=== PATIENT | female | born 1980 | race Caucasian/White ===

== ENCOUNTER 2019-03-03 13:46 | Inpatient (IN) | payer BC ==
[~2019-03-03] VITALS: Ht 172.7 cm; Wt 264.8 kg
[2019-03-03] MEDS ORDERED: ROBAXIN 50500 MG/TAB PO (14:50)
[2019-03-03] MEDS ORDERED: ATIVAN 0.50.5 MG/TAB PO (14:51)
[2019-03-03] MEDS ORDERED: OXY IR5 MG PO (14:53)
[2019-03-03] MEDS ORDERED: CELEBREX 200MG200 MG PO (14:54)
[2019-03-03] MEDS ORDERED: ACTOS30 MG PO (15:00)
[2019-03-03] MEDS ORDERED: BENICAR40 MG PO (15:00)
[2019-03-03] MEDS ORDERED: LYRICA 100MG C100 M1 PO (15:01)
[2019-03-03] MEDS ORDERED: TIROSINT25 MC1 PO (15:02)
[2019-03-03] MEDS ORDERED: AMARYL 2MG T2 MG/TAB PO (15:03)
[2019-03-03] MEDS ORDERED: PRILOSEC 20MG20 MG PO (15:04)
[2019-03-03] MEDS ORDERED: CYMBALTA 60MG60 MG PO (15:04)
[2019-03-03] MEDS ORDERED: AMBIEN 10MG10 MG PO (15:05)
[2019-03-03] MEDS ORDERED: ZOCOR 40MG40 MG PO (15:06)
[2019-03-03] MEDS ORDERED: PROZAC 20MG20 MG PO (15:06)
[2019-03-03] MEDS ORDERED: CLARITIN 1010 MG/TAB PO (15:07)
[2019-03-03] MEDS ORDERED: SYNTHROID0.2 MG/TAB PO (15:08)
[2019-03-03] MEDS ORDERED: VICTOZA6 MG/ML SQ (15:09)
[2019-03-03] MEDS ORDERED: TRESIBA FL200 UNIT/1 SQ (15:10)
[2019-03-03 15:13] LABS: BASO # 0.1 (0.0-0.2); BASO % 0.6 % (0.0-2.0); EOS # 0.2 (0.0-0.7); EOS % 1.8 % (0-4.0); GRAN # 6.1 (1.4-6.5); GRAN % 62.7 % (42.2-75.2); HEMOGLOBIN 10.8 g/dl (12.5-16.0); LYMPH # 2.8 (1.2-3.4); LYMPH % 28.7 % (20.0-51.0); MEAN CELL VOLUME 94 fl (80.0-100.0); MEAN CORPUSCULAR HEMOGLOBIN 29 pg (27.0-31.0); MEAN CORPUSCULAR HGB CONC 31 g/dl (33.0-37.0); MONO # 0.6 (0.1-0.6); MONO % 5.9 % (1.7-9.3); PLATELET COUNT 325 K/mm3 (130-400); RED BLOOD COUNT 3.73 M/mm3 (4.10-5.30)
[2019-03-03 15:16] LABS: HEMATOCRIT 35.1 % (37.0-47.0)
[2019-03-03 15:20] LABS: ALBUMIN 3.8 gm/dL (3.5-5.0); BILIRUBIN,TOTAL 0.4 mg/dL (0.0-1.0); CALCIUM 9.4 mg/dL (8.4-10.2); CREATININE, serum 0.73 (0.52-1.25); POTASSIUM 4.2 mmol/L (3.4-5.0)
--- NOTE | 2019-03-03 16:19 | NUR ---
garbage worker received a call from patient and spoke to her on 03/01/19 about her injury and inability to move, since [facility]. Worker collaborated with Cathy at Dr Flores's office to have patient transferred to this emergency room as patient adamently refuses to transfer to the [facility] emergency room. Patient received a leg injury while visiting at her mother's home and due to her weight, hasn't been able to stand up or move since then. Patient's family moved a mattress under patient, for her comfort. Patient verbalizes that it is very difficult for her to be in the hospital. Worker offered emotional support. Patient will be admitted to the medical unit. Patient lives with spouse, who works at [employer] and is an IT worker. Patient states she is very close to her mother, sister, nieces and nephew that also reside in [place]. Physical and occupational therapies will be ordered and will assist with recommendations for disposition. Case management will continue to follow and assist with securing a safe discharge plan. Patient has a walker and a wheelchair at home. Patient's primary care physician is Dr Flores.
[2019-03-03] MEDS ORDERED: PERCOCET 325 MG1 TA2 PO (17:28)
[2019-03-03] MEDS ORDERED: CRANBERRY500 M3 PO (17:30)
[2019-03-03] MEDS ORDERED: ASPIRIN 81M81 MG/TA2 PO ×2 (17:31)
[2019-03-03] MEDS ORDERED: STOOL SOFTENER100 M2 PO (17:33)
[2019-03-03] MEDS ORDERED: NATURAL IRON65 MG PO (17:34)
[2019-03-03] MEDS ORDERED: MIDOL COMPLETE1 EACH PO (17:36)
[2019-03-03] MEDS ORDERED: VITAMIN C500 MG PO (17:37)
[2019-03-03 17:38] VITALS: BP 148/81; PULSE 95; TEMP 98.4
[2019-03-03] MEDS ORDERED: DIFLUCAN50 MG (19:10)
[2019-03-03] MEDS ORDERED: LASIX 20MG TABL20 MG (19:10)
--- NOTE | 2019-03-03 19:30 | NUR ---
Pt arrived to room 359 at this time. Pt is A/O x3. Very friendly and talkative. She currently reports pain to R shoulder, and reports some pressure to sternum area since PICC placement. Denies N/V. Pt reporting the need to urinate, patient requesting to urinate on towel and be cleaned up. Assisted with this, foul smelling urine. Pt has a PICC line to RUE. at bedside, POC discussed with patient who verbalizes understanding.
[2019-03-03 20:15] VITALS: BP 124/64; PULSE 93; TEMP 97.9
[2019-03-04] MEDS ORDERED: MUCINEX 60600 MG/TA1 PO (00:29)
[2019-03-04] MEDS ORDERED: BENADRYL25 M2 PO ×2 (00:31→00:58)
[2019-03-04] MEDS ORDERED: SENNA-S 50 MG-81 TAB PO (00:34)
[2019-03-04] MEDS ORDERED: VITAMIN B11000 MCG/M IM (00:36)
[2019-03-04] MEDS ORDERED: CALCIUM/MAGNESI1 T13 PO (00:43)
[2019-03-04] MEDS ORDERED: AZO YEAST PO (00:47)
[2019-03-04] MEDS ORDERED: Pamprin PO (00:50)
[2019-03-04] MEDS ORDERED: [UNRECOGNIZED DRUG - OTHER] PO (00:53)
[2019-03-04] MEDS ORDERED: DAY TIME 325 MG1 SGL PO (00:59)
[2019-03-04] MEDS ORDERED: [UNRECOGNIZED DRUG - CODE] PO (01:00)
[2019-03-04] MEDS ORDERED: IMODIUM 2MG CAPS2 MG PO (01:00)
--- NOTE | 2019-03-04 01:00 | NUR ---
THIS NURSE TOOK OVER PT CARES AT THIS TIME.
[2019-03-04] MEDS ORDERED: ZANTAC 150MG T150 MG PO (01:02)
[2019-03-04] MEDS ORDERED: TYLENOL 8 HR PO (01:03)
[2019-03-04] MEDS ORDERED: GAS AID MAXIMU125 MG PO (01:04)
[2019-03-04] MEDS ORDERED: ZOFRAN 4MG T4 MG/TAB PO (01:05)
[2019-03-04] MEDS ORDERED: EXCEDRIN1 TAB PO (01:05)
[2019-03-04] MEDS ORDERED: ALEVE 220MG220 MG PO (01:06)
[2019-03-04] MEDS ORDERED: PEPTO BISM262 MG/15 PO (01:07)
--- NOTE | 2019-03-04 01:32 | NUR ---
Completed assessment; PT tolerated call cares and communications; PT A&Ox4, BS active x4, HRRR, PERRLA, spouse in room; PT educated the home medication will need to go home; Ortho communication post consult stated will follow outpt with no more inpt orders; No further assessed or communicated concerns at time of exit; PT able to return to comfortable position in bed with personal items and call light within reach; Will continue to monitor. CDA
[2019-03-04 01:48] VITALS: BP 130/52; PULSE 101; TEMP 98.2
--- NOTE | 2019-03-04 01:50 | NUR ---
PT HAS C/O PAIN TO FOOT AND NEEDING PRN TYLENOL, ADMINISTERED. PT VOICED NO OTHER ISSUES OR NEEDS AT THIS TIME.
--- NOTE | 2019-03-04 04:00 | NUR ---
THIS NURSE ADMINISTERED 0300 MEDS. PT TOOK WITHOUT ISSUE. PT STATED SHE IS SLEEPING WELL DUE TO TAKING HER AMBIAN EARLIER. NO OTHER ISSUES OR CONSERNS VOICED. PT PLEASANT AND COOPERATIVE WITH CARES.
[2019-03-04 04:24] VITALS: BP 134/46; PULSE 102; TEMP 98.4
--- NOTE | 2019-03-04 07:15 | NUR ---
Report received from ZARA Wu. PT in bed resting on side in beriatric bed, denies needs, will continue to monitor.
[2019-03-04 08:28] VITALS: BP 145/58; PULSE 89; TEMP 97.2
--- NOTE | 2019-03-04 10:36 | NUR ---
Pt resting in bed after getting bed bath from student nurse. PICC to WILBERT. RLE dressed with DEJON, cannot feel pulses d/t dressing but CMS intact pt able to move toes but has diminished sensation to toes chronically. Pt denies pain. Waiting for family to come with breakfast. Assessment charted. Will continue to monitor.
--- NOTE | 2019-03-04 11:15 | NUR ---
Initial visit; Patient thanked Director Of Field Coordination for stopping and offering her God's blessings.
[2019-03-04 12:00] VITALS: BP 152/75; PULSE 96; TEMP 97.5
--- NOTE | 2019-03-04 13:11 | NUR ---
SW met with the patient during clinical rounds. The hospitist's discussed her and physical therapies recommendation of post-acute rehab. The patient reports that she would be agreeable to rehab. JONNA then followed up with the patient to discuss discharge plan. The patient lives in [place] with her , Tr. She states that her sister and mother both live within a mile of her. She reports needing assistance with ADLs and has a cane, walker, and wheelchair. She states her is able to help and assist her when he is home from work. She states that her family is also supportive, but that she does not like to ask them for help, because they have their own responsibilities. The patient's PCP is Dr. Rainer Flores and she receives her medications from the [facility] in [facility]. She also uses [facility]. She reports no difficulties obtaining her meds. The patient does not have advanced directives, but she was interested in obtaining a form for DPOA-HC. JONNA provided. JONNA then discussed post-acute rehab options and presented and explained the patient choice form. The patient states that she is open to all options. JONNA contacted and faxed [facility] to [facility], [facility], [facility], and [facility]. Patient choice form signed by the patient and she was provided a copy. An IPR consult was also ordered. Dalia, IPR Director, reports that she would like to accept the patient; but that their is not a bed available at this time. SW to continue to follow.
--- NOTE | 2019-03-04 13:31 | NUR ---
Primary nurse was assisted with [id number] patient care by [employer] student Laila Izaguirre and [employer] instructor Denisa Ortiz RN-BC.
--- NOTE | 2019-03-04 14:51 | NUR ---
Shannan, at [facility], reports that they have declined the patient. Rosas, at [facility], reports that they have declined the patient. Kristina, at [facility], reports that the patient has no snf benefits and that the patient would then have to private pay. JONNA contacted Maryam at [facility] to find out if they can accept. Maryam reports that she needs her hot strip mill supervisor to still review the referral. JONNA to continue to follow.
--- NOTE | 2019-03-04 15:12 | NUR ---
Maryam, at [facility], reports that they are unable to accept the patient; due to her not having much medical management.
--- NOTE | 2019-03-04 15:43 | NUR ---
Report given to ZARA Boswell who will resume care. Angelo aware of no psych coverage until 03/14
--- NOTE | 2019-03-04 16:02 | NUR ---
JONNA contacted and faxed a referral to Bailey at [facility]. Bailey reports that their clinical coordinator will not be back into the office until Thursday to review the referral. JONNA also contacted and faxed a referral to Kristina at [facility] in [place]. JONNA to update the patient and continue to follow.
[2019-03-04 16:14] VITALS: BP 135/72; PULSE 96; TEMP 98.4
--- NOTE | 2019-03-04 16:17 | NUR ---
JONNA updated the patient and she reports she is open to broadening where to send the referrals. She states she is open to [place], [place], and even [place]. JONNA will need to send those referrals and continue to follow.
--- NOTE | 2019-03-04 17:44 | NUR ---
Patient resting in bed. at the bedside. Patient A&O, VS stable. IV CDI. Patient complaints of loose stools, requested medication for diarrhea. Nurse will notify slip cover estimator nurse. Right foot elvated on pillow, patient complaints of pain, did not request pain medication. No further needs expressed from patient. Call light within reach
[2019-03-04 20:30] VITALS: BP 157/68; PULSE 95; TEMP 98.1
--- NOTE | 2019-03-04 20:30 | NUR ---
Initial shift assessment done- states having pain to right foot/back 05/18--scheduled for a percocet at this time, assisted pt with female urinal--voided 400cc dark cassandra urine, Has PICC to WILBERT-- no other requests at this time
[2019-03-05 01:30] VITALS: BP 126/54; PULSE 100; TEMP 98.3
[2019-03-05 04:57] VITALS: BP 120/61; PULSE 95
--- NOTE | 2019-03-05 05:24 | NUR ---
Quiet night- slept fairly well for 4-5 hours, pleasant, VSS
[2019-03-05 07:11] LABS: BASO # 0.1 (0.0-0.2); BASO % 0.9 % (0.0-2.0); EOS # 0.2 (0.0-0.7); EOS % 3.2 % (0-4.0); GRAN # 2.9 (1.4-6.5); GRAN % 40.8 % (42.2-75.2); HEMOGLOBIN 10.2 g/dl (12.5-16.0); LYMPH # 3.2 (1.2-3.4); LYMPH % 46.3 % (20.0-51.0); MEAN CELL VOLUME 94 fl (80.0-100.0); MEAN CORPUSCULAR HEMOGLOBIN 29 pg (27.0-31.0); MEAN CORPUSCULAR HGB CONC 31 g/dl (33.0-37.0); MEAN PLATELET VOLUME 10.5 fl (7.4-10.4); MONO # 0.6 (0.1-0.6); MONO % 8.7 % (1.7-9.3); PLATELET COUNT 296 K/mm3 (130-400); RED BLOOD COUNT 3.51 M/mm3 (4.10-5.30); REDCELL DISTRIBUTION WIDTH-CV 13.2 % (11.5-14.5)
[2019-03-05 07:13] LABS: HEMATOCRIT 33.1 % (37.0-47.0)
[2019-03-05 07:23] VITALS: BP 151/75; PULSE 77; TEMP 97.8
[2019-03-05 07:27] LABS: CALCIUM 9.2 mg/dL (8.4-10.2); CREATININE, serum 0.72 (0.52-1.25)
--- NOTE | 2019-03-05 09:30 | NUR ---
Patient assessment complete. Patient laying in bed upon entry. Lung sounds clear throughout, heart sounds normal. Bowel sounds present X4. No edema noted. Radial pulses strong bilaterally. Right leg in cast, patient able to wiggle toes. Patient denies pain other than right leg from working with therapy. Denies pain medication. Patient denies SOB, palpitations, dizziness, n/v. Denies chest pain. Denies other needs at this time. PICC in [facility] is CDI, no inflammation or phlebitis. Blood return and flushing from both ports. Call light within reach.
[2019-03-05 11:24] VITALS: BP 158/64; PULSE 84; TEMP 98.2
[2019-03-05 15:20] VITALS: BP 132/66; PULSE 84; TEMP 98.4
--- NOTE | 2019-03-05 18:43 | NUR ---
patient has had uneventful day. Worked with therapy earlier, did not get out of bed. Patient has shifted and turned self in bed. Very pleasant and helpful in cares. States some pain in right leg after therapy earlier but not much. Denies other needs at this time.
--- NOTE | 2019-03-05 19:20 | NUR ---
Shift assessment complete. Pt resting in bed, awake, a&o, cooperative c cares. Pt reports continued pain to R foot/leg, will continue c pain meds as scheduled. Pt denies further c/o. RLE dressing/splint per ortho, s complication. PICC to R upper arm, patent c good blood return. Pt denies further needs. Call light in reach, will monitor.
[2019-03-05 20:08] VITALS: BP 144/62; PULSE 91; TEMP 98
[2019-03-06 00:43] VITALS: BP 149/58; PULSE 101; TEMP 98.6
[2019-03-06 04:06] VITALS: BP 104/50; PULSE 94; TEMP 98.2
--- NOTE | 2019-03-06 06:04 | NUR ---
Pt resting in bed, condition unchanged. Pt has rested well this shift c very few needs. Pain well controlled c scheduled pain medication, no need for addt'l int. Pt denies needs at this time. Call light in reach.
[2019-03-06 08:56] VITALS: BP 150/75; PULSE 89; TEMP 98.5
--- NOTE | 2019-03-06 09:30 | NUR ---
Patient laying in bed. Shift assessment complete. Patient ordered breakfast. Heart sounds normal, lung sounds clear, bowel sounds present. Assisted in using female urinal. Cleaned up and changed gown. Patient can wiggle toes in right cast. Radial pulses strong bilaterally. Patient states her pain is a 6/10. Her ankle is bothering her after yesterday. No other needs at this time. Call light within reach.
[2019-03-06 11:09] VITALS: BP 150/73; PULSE 95; TEMP 98.2
--- NOTE | 2019-03-06 12:28 | NUR ---
BLOOD SUGAR CHECKED AFTER PATIENT JUST FININSHED LUNCH, WILL RECHECK. DID NOT GIVE SLIDING SCALE DUE AT NOON.
[2019-03-06 16:00] VITALS: BP 155/78; PULSE 87; TEMP 97.8
--- NOTE | 2019-03-06 17:31 | NUR ---
PATIENT LAYING IN BED WITH MOM AT BEDSIDE. UNEVENTFUL DAY. WORKED WITH PHYSICAL THERAPY A LITTLE TODAY. PATIENT IS VERY COMPLIANT WITH CARES AND HELPFUL. PATIENT HASN'T HAD MANY COMPLAINTS OR NEEDS THROUGHOUT THE DAY.
[2019-03-06 19:02] VITALS: BP 145/70; PULSE 92; TEMP 98.8
--- NOTE | 2019-03-06 19:09 | NUR ---
Report given to ZARA Girard. Patient has been pleasant and cooperative with cares. No other needs at this time.
--- NOTE | 2019-03-06 19:42 | NUR ---
Shift assessment complete. Pt resting in bed, awake, a&o, cooperative c cares. Pt reports continued chronic pain to RLE, will continue scheduled pain regimine. PICC noted to R upper arm, patent c good blood return. Pt denies further needs. Call light in reach, will monitor.
[2019-03-07 01:14] VITALS: BP 131/65; PULSE 102; TEMP 98.5
[2019-03-07 04:31] VITALS: BP 127/64; PULSE 95; TEMP 98.3
[2019-03-07 07:29] VITALS: BP 132/69; PULSE 85; TEMP 97.5
--- NOTE | 2019-03-07 09:00 | NUR ---
PATIENT LAYING IN BED UPON ENTRY. OT GETTING READY TO WORK WITH HER. PATIENT STATES SHE SLEPT WELL. REQUESTING ATIVAN BEFORE DOCTOR VISITS WITH HER. ASSESSMENT COMPLETE. LUNG SOUNDS CLEAR UPPER LOBES, BASES DIMINISHED. BOWEL SOUNDS PRESENT X4. HEART SOUNDS RRR. PER PATIENT "I HAVEN'T ORDERED BREAKFAST, I'M ANXIOUS ABOUT TODAY. HOPEFULLY THE ATIVAN WILL KICK IN BEFORE THEY COME TO SEE ME. MY STOMACH IS A LITTLE UNEASY". DENIES DIZZINESS, CHEST PAIN, PALPITATIONS OR SOB. PER PATIENT, "ANKLE DOESN'T FEEL TOO BAD. MY LOW BACK HURTS A LITTLE". AWAITING IPR SCREEN AND POSSIBLY GO TO IPR TODAY. ASSISSTED WITH FEMALE URINAL, COMPLETE BED CHANGE. DENIES OTHER NEEDS AT THIS TIME. CALL LIGHT WITHIN REACH.
[2019-03-07 10:55] VITALS: BP 151/79; PULSE 96; TEMP 98
--- NOTE | 2019-03-07 13:46 | NUR ---
Per vega amor... patient had solid bowel movement that was dark and sticky. patient has stated "my anxiety has messed with my stomach this morning". Patient is anxious about POC today and whether she will be moved to [facility]. Otherwise, patient is pleasant and not complaining of pain in regards to ankle and foot. No other needs at this time.
--- NOTE | 2019-03-07 15:23 | NUR ---
SW contacted [facility] and they report they do not have a bed available until potentially tomorrow. The director at [facility] suggested SW contact one of their sister hospitals like [facility]. SW student contacted [facility]. They report they have beds available but wouldn't be able to accept until tomorrow, 03/08. SW student faxed a referral to [facility] and will continue to follow.
[2019-03-07 15:39] VITALS: BP 129/61; PULSE 93; TEMP 98.3
--- NOTE | 2019-03-07 16:38 | NUR ---
Patient laying in bed, at bedside. Patient prescribed aristocort cream, left arm, under bicep is reddened, rash like area. Applied layer of cream. Per patient, she "has areas pop up occasionally". Denies other needs at this time. Possible IPR placement tomorrow. Call light within reach.
--- NOTE | 2019-03-07 16:48 | NUR ---
SW student contacted and faxed a referral to [facility] in [place]. SW awaiting their screening.
--- NOTE | 2019-03-07 19:00 | NUR ---
REPORT GIVEN TO ZARA QUINONES.
[2019-03-07 21:12] VITALS: BP 139/66; PULSE 92; TEMP 97.5
[2019-03-08 00:49] VITALS: BP 122/56; PULSE 97; TEMP 98.4
[2019-03-08 04:50] VITALS: BP 149/64; PULSE 88; TEMP 97.5
--- NOTE | 2019-03-08 05:37 | NUR ---
PT HAD UNEVENTFUL NOC. RECIEVED MEDS ORDERED. NO ISSUES OR CONSERNS VOICED THIS SHIFT. PLEASANT AND COOPERATIVE WITH CARES.
[2019-03-08 08:28] VITALS: BP 113/59; PULSE 86; TEMP 97.7
--- NOTE | 2019-03-08 09:16 | NUR ---
[facility] reports that they are unable to accept the patient.
--- NOTE | 2019-03-08 09:50 | NUR ---
PICC intact right upper arm. The edges of the dressing are rolling up. With sterile technique right upper arm PICC dressing change done with insertion site cleansed with ChloraPrep 1, chlorhexidine impregnated disc applied, skin prep, StatLock, and Tegaderm applied. Extra Tegaderm applied on top the catheter. Her symptoms of IV complications noted. No concerns voiced.
--- NOTE | 2019-03-08 10:44 | NUR ---
Pt lying in bed. Denies any pain. C/O right arm pain throught the night but had resolved. Denies any shortness of breath. Breathing even and unlabored. Completed morning assessent. Pt eager to get rehab place set. Left ankle wrapped, dressing clean dry and intact. Will continue to monitor. Call light in reach.
[2019-03-08 11:36] VITALS: BP 135/58; PULSE 85; TEMP 98.4
--- NOTE | 2019-03-08 13:23 | NUR ---
IPR Director, Dalia, reports that they have a bed available. Dalia got approval from the patient's insurance and she is able to accept the patient.
[2019-03-08] MEDS ORDERED: TRIAMCINOLONE A15 GM TP (13:53)
--- NOTE | 2019-03-08 13:58 | NUR ---
The patient is to discharge today, 03/08, to [facility]. No additional needs at this time.
--- NOTE | 2019-03-08 14:31 | NUR ---
Gave report to IPR. Pt is ready to go, all belongings gathered.
[2019-03-08 14:34] VITALS: BP 135/58; PULSE 85; TEMP 98.4
[2019-03-08] MEDS ORDERED: LOVENOX 6060 MG/0.6 SQ (17:22)
== END 2019-03-08 14:37 | DRG 563 ==
LOC: COL.ER 13:46 → MEDICAL 15:41
PROVIDERS: Emergency Medicine; Physician Assistant
PROC: 02HV33Z Insertion of Infusion Device into Superior Vena Cava, Percutaneous Approach (ICD-10-PCS; principal; 2019-03-03)
DX: S92.001A Unspecified fracture of right calcaneus, initial encounter for closed fracture (principal); Z68.45 Body mass index [BMI] 70 or greater, adult; W18.30XA Fall on same level, unspecified, initial encounter; E66.01 Morbid (severe) obesity due to excess calories; I10 Essential (primary) hypertension; E11.40 Type 2 diabetes mellitus with diabetic neuropathy, unspecified; E78.5 Hyperlipidemia, unspecified; J45.909 Unspecified asthma, uncomplicated; E88.81 Metabolic syndrome and other insulin resistance; K21.9 Gastro-esophageal reflux disease without esophagitis; Z87.891 Personal history of nicotine dependence; E03.9 Hypothyroidism, unspecified; F41.8 Other specified anxiety disorders; D50.9 Iron deficiency anemia, unspecified; G72.9 Myopathy, unspecified; M54.5 Low back pain; G89.29 Other chronic pain; L30.9 Dermatitis, unspecified; R21 Rash and other nonspecific skin eruption
CPT/HCPCS: 99223-AI; 99231-AI; 99232-AI; 99238; 99239; C1751; J1650; J1815; Q4045

== ENCOUNTER 2019-03-08 13:19 | Inpatient (IN) | payer BC, OTHER ==
[~2019-03-08] VITALS: Ht 172.7 cm; Wt 207.7 kg
[~2019-03-08 13:19] MED LIST: ACTOS30 MG PO; ALEVE 220MG220 MG PO; AMARYL 2MG T2 MG/TAB PO; AMBIEN 10MG10 MG PO; ASPIRIN 81M81 MG/TA2 PO; ATIVAN 0.50.5 MG/TAB PO; AZO YEAST PO; BENADRYL25 M2 PO; BENICAR40 MG PO; CALCIUM/MAGNESI1 T13 PO; CELEBREX 200MG200 MG PO; CLARITIN 1010 MG/TAB PO; CRANBERRY500 M3 PO; CYMBALTA 60MG60 MG PO; DAY TIME 325 MG1 SGL PO; DIFLUCAN50 MG; EXCEDRIN1 TAB PO; GAS AID MAXIMU125 MG PO; IMODIUM 2MG CAPS2 MG PO; LASIX 20MG TABL20 MG; LYRICA 100MG C100 M1 PO; MIDOL COMPLETE1 EACH PO; MUCINEX 60600 MG/TA1 PO; NATURAL IRON65 MG PO; OXY IR5 MG PO; PEPTO BISM262 MG/15 PO; PERCOCET 325 MG1 TA2 PO; PRILOSEC 20MG20 MG PO; PROZAC 20MG20 MG PO; Pamprin PO; ROBAXIN 50500 MG/TAB PO; SENNA-S 50 MG-81 TAB PO; STOOL SOFTENER100 M2 PO; SYNTHROID0.2 MG/TAB PO; TIROSINT25 MC1 PO; TRESIBA FL200 UNIT/1 SQ; TYLENOL 8 HR PO; VICTOZA6 MG/ML SQ; VITAMIN B11000 MCG/M IM; VITAMIN C500 MG PO; ZANTAC 150MG T150 MG PO; ZOCOR 40MG40 MG PO; ZOFRAN 4MG T4 MG/TAB PO; [UNRECOGNIZED DRUG - CODE] PO; [UNRECOGNIZED DRUG - OTHER] PO
[2019-03-08] MEDS ORDERED: TRIAMCINOLONE A15 GM TP (13:53)
[2019-03-08 17:14] VITALS: BP 115/73; PULSE 92; TEMP 97.9
[2019-03-08] MEDS ORDERED: LOVENOX 6060 MG/0.6 SQ (17:22)
--- NOTE | 2019-03-08 21:23 | NUR ---
Pt admitted via bariatric bed with belongings and spouse from medical room 359. Pt A&O, pleasantly cooperative. Set up assist for using female urinal and bedpan. Faxed ortho office request to clarify frequency of and who has their permission to do skin checks/ dressing changes. Pt's assists with cares. PICC to RUE with 2 lumens. 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 Splint and ruby wrap intact to RLE. Upper pannus reddened and peeling midline. Pt performed sponge bath sitting bedside this afternoon. Report to ZARA Ang.
[2019-03-09 04:24] VITALS: BP 127/59; PULSE 94; TEMP 97.7
--- NOTE | 2019-03-09 07:26 | NUR ---
Patient report given to ZARA Torres. Patient had an uneventful night. Vitals stable. Patient reports resting well throughout the night.
--- NOTE | 2019-03-09 11:41 | NUR ---
First visit from the office aide. No needs right now.
--- NOTE | 2019-03-09 16:42 | NUR ---
SW met with patient for initial intake and to review team conference notes. Patient lives at home in [place] with her . Patient's PCP is Dr Flores and she obtains prescriptions from [facility]. Patient has a cane, walker and wheelchair for mobility. There is no reported home health services. Patient completed a DPOA when she was on the acute side prior to being admitted to [facility]. SW explained the layout of the team conference notes and also reported that the IPR team would like to have a family conference on Friday 03/16 at 1pm. Patient reports she will contact her and mother about the conference. SW will continue to follow.
[2019-03-09 17:26] VITALS: BP 146/59; PULSE 95; TEMP 98.5
--- NOTE | 2019-03-09 19:50 | NUR ---
Patient resting in bed at this time call light in reach and in pleasent mood. Patient attended all therapies, tolerated diet well. Era, with Dr. Trimble's office came and assessed patient's RLE and replaced cast. Patient tolerated with minimal discomfort observed. Receiving scheduled pain meds that are effective. Will continue to monitor.
--- NOTE | 2019-03-09 20:30 | NUR ---
HS meds all reviewed and given. Patients at bedside. Patient alert and oriented x 4. Declines ice pack. Has Kpad to back. States will take pudding she has in room for snack tonight. Cream applied to left arm, lateral to right Picc site and to right calf.
--- NOTE | 2019-03-09 22:00 | NUR ---
Fan given per patient request "noise helps me sleep". Pain decreased to 5/10.
--- NOTE | 2019-03-10 02:27 | NUR ---
Patient has been resting quietly in bed. Respirations with ease.
--- NOTE | 2019-03-10 03:30 | NUR ---
Patient reports sleeping until now. Scheduled meds reviewed and given. Turns self side to side. Female urinal placed by conduit helper but urine does get on chux and [employer] changes. Patient alert and oriented x 4. Pleasant. Reports fan helpful for sleep and pain much better this noc.
[2019-03-10 03:54] VITALS: BP 146/87; PULSE 94; TEMP 98.2
--- NOTE | 2019-03-10 14:53 | NUR ---
JONNA met with patient to follow up about scheduling a family conference next Thursday at 1pm. She reported her and mom will be able to attend the conference.
--- NOTE | 2019-03-10 15:10 | NUR ---
Patient resting in bed at this time, call light in reach. Patient was able to transfer to bedside commode two times today with one staff assisting her. Patient moved herself over to commode using slide sheet. Staff securing bedside commode to make sure it did not slip away from bed when transferring. Will continue to monitor.
[2019-03-10 16:05] VITALS: BP 133/60; PULSE 89; TEMP 98
--- NOTE | 2019-03-10 20:30 | NUR ---
PT RESTING IN BED. A&O X4. CHEERFUL AND TALKATIVE. MORBIDLY OBESES BUT ABLE TO MOVE AROUND IN BED WELL PER TRAPEZE/BARIATRIC BED. SPLINT TO RLE INTACT. ICE PACKIN PLACE. USES FEMALE URINAL. VOIDS SL CONCENTRATED YELLOW HAZY URINE. NO DYSURIA, FLANK PAIN OR TEMP. PANNUS'S CLEANED DRIED AND POWDER APPLIED- AREA VERY DAMP AND SL RED. NEEDS CLEANED FREQ. CALL LIGHT IN REACH. PAIN CONTROLLED AT THIS TIME WITH SCHEDULED PERCOCET.
[2019-03-11 03:27] VITALS: BP 150/67; PULSE 94; TEMP 97.4
[2019-03-11 16:37] VITALS: BP 145/70; PULSE 92
[2019-03-11 16:59] VITALS: TEMP 97.9
--- NOTE | 2019-03-11 17:37 | NUR ---
Pt concerned she might be getting a UTI. Reports episode of chills this morning, but after she did therapy and was perspiring. Pt reports feeling urgency and had very little output. Percussed flank areas, pt had some pain to left side, but also achey all over from therapies. No fever. Pt reports odor, but also reports odor from groin areas. Order obtained for UAUC per straight cath.
--- NOTE | 2019-03-11 21:45 | NUR ---
PT RESTING IN BARIATRIC BED. USES TRAPEZE TO MOBILIZE. MORBIDLY OBESE. A&OX4. TALKATIVE. PT FOCUSING ON "SLEEPING PARALYSIS" EPISODE THIS AM CAUSING HER ANXIETY TO ESCULATE. RLE WITH DEJON WRAP. ICE PACK APPLIED. GETS SCHEDULED PERCOCET AND LYRICA WHICH HELP WITH PAIN. NO NEEDS AT THIS TIME.
[2019-03-12 06:11] VITALS: BP 138/69; PULSE 91; TEMP 98.4
--- NOTE | 2019-03-12 09:42 | NUR ---
Report from ZARA Armstrong. Pt laying in bed, good mobility, meds given, triamcinolone oint to redness on BLE. Pt took own lactase at bedside prior to breakfast. Attended group therapy.
[2019-03-12 15:55] VITALS: BP 106/52; PULSE 94; TEMP 98
--- NOTE | 2019-03-12 17:15 | NUR ---
Pt transferred to [facility] with set up assist this afternoon. Ice and elevated RLE with splint intact. Pt reports less swelling even after re-wrapping by ortho.
--- NOTE | 2019-03-12 20:30 | NUR ---
PT RESTING IN BARIATRIC BED. GENERALLY LAYS ON RT SIDE. USES TRAPEZE PRN. MORBIDLY OBESES. PT CHERRFUL AND TALKATIVE. PAIN UNDER CONTROL WITH SCHEDULED PERCOCET, LYRICA & ROBAXIN. PT ABLE TO PERFORM SELF CARES OF PANNUS CARES. AREA LESS RED AND DAMP. PT PLACES PILLOOW CASES IN CREASES.
[2019-03-13 05:34] VITALS: BP 118/58; PULSE 85; TEMP 98
--- NOTE | 2019-03-13 07:15 | NUR ---
Report received from ZARA Armstrong. PT in bed resting, feeling well, denies needs, will continue to monitor.
--- NOTE | 2019-03-13 10:00 | NUR ---
Assessment charted. Pt has PICC to WILBERT, flushes well and good blood return. Pannus and groin has some reddened areas, chronic issue from obesity. Pt doing best do own pericare when toileting, wipes and washes self and applies powder as needed. Denies pain, able to wiggle toes on RLE well and has good sensation. Up to commode as needed for toileting during day. Will continue to monitor.
[2019-03-13 15:57] VITALS: BP 127/70; PULSE 97; TEMP 98.3
--- NOTE | 2019-03-13 17:36 | NUR ---
Pt has done well today. With SARTHAK Sánchez, pt able to wheel self down to courtyard and back to room. RLE in splint, pt c/o sensation of something balled up inside but after investigating nothing was found, discussed most likely just a sensation rather than anything acutally in there. Pt taking PO well, denies needs, will give bedside shift report to nightshift nurse who will resume care.
--- NOTE | 2019-03-13 23:23 | NUR ---
PT ABLE TO TRANSFER - ROLL SELF OVER ONTO BSC. VOIDED NORMA BUT CLEAR URINE. NO S/S UTI. PT ABLE TO PROVIDE OWN HYGEINE CARE. ENC PO FLUIDS. ABD FOLDS CLEANED, DRIED AND POWDER APPLIED. RT SIDE FOLD ARE MORE RED AND MOIST.
[2019-03-14 06:20] VITALS: BP 126/78; PULSE 89; TEMP 98.1
--- NOTE | 2019-03-14 09:34 | NUR ---
Report from ZARA Armstrong. Pt used BSC this morning, returned to bed, has good mobility. Took pills whole with thin liquids. PICC flushes without difficulty, due to have dressing changed today, JOMAR Jones services will return later. Pt alert, pleasant, cooperative. Concerned about RLE splint feeling loose. Will contact ortho office for recommendations.
--- NOTE | 2019-03-14 10:40 | NUR ---
PICC intact right upper arm with sterile dressing change done with insertion site cleansed with chloraprep x 1, chlorhexidine impregnated disk applied, skin prep, stat lock, and tegaderm applied. no signs or symptoms of IV complications noted. no concerns voiced. will continue to monitor. extra tegaderm applied on top of dressing.
--- NOTE | 2019-03-14 10:41 | NUR ---
Follow-up visit; Eleni states she is doing well and thanked [employer] for checking in on her and keeping her in her prayers.
[2019-03-14 16:05] VITALS: BP 159/56; PULSE 97; TEMP 98.2
--- NOTE | 2019-03-14 16:11 | NUR ---
Pt's mom visiting.
--- NOTE | 2019-03-14 16:27 | NUR ---
Per Marilyn Kincaid for Dr. Trimble, Ortho, order from [facility] a custom AFO with foot in plantar flexion. Left [facility] voicemail.
--- NOTE | 2019-03-14 21:10 | NUR ---
HS meds all reviewed and given. States will either have pudding or granola bar tonight if takes snack and they are at bedside. Alert and oriented x 4. Pleasant. Ice pack to right ankle/foot.
--- NOTE | 2019-03-14 21:19 | NUR ---
As per [facility]'s conversation, faxed measurements and face sheet. They will contact Dr. Trimble's office to clarify if their suggested cam boot is an acceptable alternative to AFO order.
--- NOTE | 2019-03-14 21:24 | NUR ---
Received "OK" fax receipt to [place].
--- NOTE | 2019-03-15 01:41 | NUR ---
PATIENT RESTS QUIETLY IN BED. RESPIRATIONS WITH EASE.
[2019-03-15 04:05] VITALS: BP 133/54; PULSE 91; TEMP 97.6
--- NOTE | 2019-03-15 04:16 | NUR ---
Patient awakened by nurse for am meds. Denies needs. VSS.
--- NOTE | 2019-03-15 15:30 | NUR ---
SW met with patient to check in from the weekend. Patient reports she is tired but continues to be motivated to improve. JONNA confirmed the family conference will take place tomorrow at 1pm with the IPR and patient's mother and . Patient does not have any questions or concerns at this time.
--- NOTE | 2019-03-15 16:09 | NUR ---
Patient resting in bed at this time, call light in reach. Patient denies questions at this time. Pain level at this time is 7/10 and refused any additional meds at this time. Attended all therapies today. Will continue to monitor.
[2019-03-15 17:16] VITALS: BP 139/51; PULSE 94; TEMP 98
--- NOTE | 2019-03-15 21:10 | NUR ---
HS meds all reviewed and given. Abdominal fold just slightly pink/no cracking. Cleansed, patted dry and desenex powder applied followed by pillow case. Patient denies needs. Alert and oriented x4.
--- NOTE | 2019-03-16 02:55 | NUR ---
Patient has been resting quietly in bed. Respirations with ease.
[2019-03-16 04:50] VITALS: BP 125/65; PULSE 95; TEMP 98.1
--- NOTE | 2019-03-16 05:30 | NUR ---
PATIENT RESTS QUIETLY IN BED ON STOMACH. RESPIRATIONS WITH EASE.
--- NOTE | 2019-03-16 10:42 | NUR ---
Patient reporting pain/burning to right heel. Patient currently has a cast in place, able to wiggle toes with no difficulty, toes have good coloring and good cap refill. Call placed to Ortho awaiting a return call.
--- NOTE | 2019-03-16 11:09 | NUR ---
Patient resting in bed at this time, call light in reach. Patient has voiced some frustration with not being able to know how many calories are in the foods that she orders from the [facility] menu. This nurse called and spoke with Melissa Beckman and she will look into this for patient. Patient was updated on this as well.
--- NOTE | 2019-03-16 13:20 | NUR ---
SW attended a family conference with patient, patient's and patient's mother. Also present was IPR diector, PT and OT. IPR director started by explaining the purpose of the conference. PT and OT reported that patient continues to make progress with ADLs and transfers. Family training is planned for Thursday morning with patient's and mother. SW reported that patient will require a few medical equipment items and also home health servcies for PT and OT. SW reported that she will return with home health options and then fax a referral. IPR reported that the tentative discharge date is set for Thursday 03/22. Patient and family did not have any unanswered questions or conerns at this time. SW will return later this afternoon with home health options and to review IPR team conference notes.
--- NOTE | 2019-03-16 15:13 | NUR ---
SW met with patient to review IPR team conference notes and also to complete DME choice form. SW reported that [employer] is a company that can provide most, if not all of the needed DME for discharge. Patient reported that she is agreeable to using that company. Patient signed DME choice form.
[2019-03-16 18:18] VITALS: BP 156/75; PULSE 90; TEMP 98.1
--- NOTE | 2019-03-16 20:00 | NUR ---
PT RESTING IN BARIATRIC BED WITH TRAPEZE. PAIN WELL CONTROLLED WITH SCHEDULED MEDICATIONS. MORBIDLY OBESES. ABLE TO MOVE SELF AROUND IN BED. RLE SPLINT INTACT. TOES WARM WITH GOOD SENSATION. ENC ICE PACK AND ELEVATE ON PILLOWS.
[2019-03-17 05:04] VITALS: BP 171/72; PULSE 90; TEMP 97.9
[2019-03-17 18:20] VITALS: BP 118/55; PULSE 97; TEMP 98.3
--- NOTE | 2019-03-17 18:26 | NUR ---
Torrey Pennington here to apply Cam boot with plantar flexion.
--- NOTE | 2019-03-17 21:29 | NUR ---
New light blue/faint purple ecchymosis to top of left foot proximal to toes, over bridge of foot. PICC flushes without difficulty. Pt aware of tentative discharge home Thursday. Brother Lupillo and his S/O visited this afternoon, pt wanted to show them how she transferred out of bed on the right side with slide board to wheelchair, nurse steadied wheelchair and provided cueing for slideboard placement during transfer for safety. SARTHAK Sánchez reports pt had difficulty transferring out of wheelchair. Report to ZARA Armstrong.
--- NOTE | 2019-03-18 03:15 | NUR ---
USED FEMALE URINAL. URINE LEAKAGE NOTED ON LINENS. CHANGED LINENS.
[2019-03-18 04:43] VITALS: BP 149/64; PULSE 61; TEMP 98.2
--- NOTE | 2019-03-18 11:39 | NUR ---
Patient with therapy at this time. Patient tolerating diet well. She is on scheduled pain meds that are effective. Patient was anxious this morning about having to leave soon and requested to stay longer. This was communicated to Dr. Miranda and Dr. Miranda communicated to Dalia. Patient was a SBA with transferring to the BSC - staff securing the BSC as she transfers. Will continue to monitor.
--- NOTE | 2019-03-18 13:53 | NUR ---
SW attempted to contact [employer] to inquire about medical equipment patient will need to discharge home. SW left a message.
--- NOTE | 2019-03-18 15:00 | NUR ---
PICC intact right upper arm with sterile dressing change done with insertion site cleansed with chloraprep x 1, skin prep, stat lock, and tegaderm applied. no signs or symptoms of IV complications noted. no concerns voiced. to continue to monitor.
[2019-03-18 15:38] VITALS: BP 114/49; PULSE 100; TEMP 98.6
--- NOTE | 2019-03-18 21:30 | NUR ---
HS meds all reviewed and given. Patient independent moving around in bed. adaptive driver examiner tool at bedside. Alert and oriented. Pleasant. Cam boot intact RLE. Foot warm.
--- NOTE | 2019-03-19 01:13 | NUR ---
PATIENT AWAKE AND TABLE FAN ADJUSTED FOR COMFORT. DENIES FURTHER NEEDS.
--- NOTE | 2019-03-19 02:10 | NUR ---
PATIENT RESTS QUIETLY IN BED. RESPIRATIONS WITH EASE.
[2019-03-19 03:47] VITALS: BP 121/53; PULSE 88; TEMP 98.1
--- NOTE | 2019-03-19 05:45 | NUR ---
PATIENT RESTS QUIETLY IN BED.
--- NOTE | 2019-03-19 09:58 | NUR ---
Report from ZARA Centeno. Pt transferred to BSC from bed with set up assist, continent of B/B
--- NOTE | 2019-03-19 13:09 | NUR ---
Rusty cheneyot to RLE. Pt inquired about using own Azo Yeast Relief med, will ask Dr. Miranda. Pt also asked about removing PICC when not in use/prior to discharge.
[2019-03-19 17:46] VITALS: BP 134/55; PULSE 99; TEMP 97.8
--- NOTE | 2019-03-19 21:07 | NUR ---
Prior to shift change pt had cam boot off and ice to RLE. Bruising present, pt states getting better, no gross swelling. Report to ZARA Uriostegui.
--- NOTE | 2019-03-19 23:06 | NUR ---
Shift assessment complete. Patient in bed, awake. States 6/10 pain in right ankle. Scheduled pain medication given. PICC flushed with NS, patent. Right boot off for bedtime. Ice applied to right ankle. Denies further needs at this time.
--- NOTE | 2019-03-20 01:38 | NUR ---
Patient in bed, awake. Incontinent of urine. Bed pads changed, jannette-care provided. Denies further needs at this time.
[2019-03-20 04:12] VITALS: BP 142/68; PULSE 89; TEMP 97.9
--- NOTE | 2019-03-20 04:15 | NUR ---
Patient in bed, awake. States, 5/10 pain in right ankle. Scheduled pain medication given. VS stable. Denies further needs at this time. Will continue to monitor.
--- NOTE | 2019-03-20 10:35 | NUR ---
Patient sitting on the side of the bed at this time, working on projects. Patient tolerated diet well today. Has ecchymosis to her abdomen due to lovenox injections, but is tolerating them well. Continues to have generalized pain as well as right lower leg/foot pain and receives schedules pain meds with good effect. Will continue to monitor. Patient in pleasent mood this morning.
[2019-03-20 18:00] VITALS: BP 135/74; PULSE 105; TEMP 97.7
--- NOTE | 2019-03-20 19:13 | NUR ---
Patient resting in bed at this time, call light in reach and mother by her side. Patient transferred with her slide board from wheelchair to bed - staff standing by her side. Patient went for a wheel around 3rd floor today with Natasha and visited with another patient. She was in a pleasent mood this shift.
[2019-03-21 04:17] VITALS: BP 123/65; PULSE 97; TEMP 97.6
--- NOTE | 2019-03-21 10:08 | NUR ---
JONNA contacted [employer], again, to inquire about the DME that is needed for patient to return home. They reported that SW will need to fax clinical information and a prescriptions for DME to [phone] and then they will call JONNA back. SW faxed info and RX.
--- NOTE | 2019-03-21 15:24 | NUR ---
JONNA met with patient and with an update on the recommended medical equipment. JONNA reported that SW faxed the order to [employer] and is waiting on a call back from them. JONNA also provided home health options and patient chose [facility]. JONNA faxed referral and contacted Nelsy. Nelsy reports she will contact patient about a time to come visit before discharge.
--- NOTE | 2019-03-21 15:42 | NUR ---
Report from ZARA Armstrong. Pt had CAM boot in place for therapies, removed now while bedresting and applying ice pack. visiting.
[2019-03-21 17:52] VITALS: BP 159/76; PULSE 82; TEMP 98.1
--- NOTE | 2019-03-21 19:41 | NUR ---
Resting in bed. Assessment complete. Lungs clear. Heart sounds normal. Bowels active x4. Pulses strong throughout. No edema noted. Bruising to right foot/lower leg present. Reports 5/10 in leg, shoulders, and back. Has scheduled percocet at 2100. Denies other needs at this time. Call light in reach.
--- NOTE | 2019-03-21 19:52 | NUR ---
Cam boot reapplied at this time. Patient reports oral care was performed earlier this evening, does not want to repeat at this time.
[2019-03-21 21:14] VITALS: BP 134/54
--- NOTE | 2019-03-22 00:10 | NUR ---
Resting in bed. Call light in reach.
--- NOTE | 2019-03-22 00:43 | NUR ---
Patient incontinent of urine. Care provided.
--- NOTE | 2019-03-22 02:09 | NUR ---
Resting in bed asleep. Call light in reach.
[2019-03-22 06:13] VITALS: BP 136/66; PULSE 93; TEMP 97.7
--- NOTE | 2019-03-22 06:58 | NUR ---
Patient had uneventful night. Report given to ZARA Torres
--- NOTE | 2019-03-22 09:24 | NUR ---
JONNA rec'd a call from Yeni from [employer]. She reported that they need more documentation on why patient needs the commode, slide board, and wheelchair. JONNA contacted PT and OT about the notes that the company requested. Yeni also reported that there is no medical necessity for the hospital bed with a trapeze. JONNA inquired about private pay cost and Yeni reported that a bed with a trapeze would cost around $5000. JONNA then met with patient and reported the above. Patient reports she will contact her mother and . JONNA will fax PT and OT notes to [employer] once they're completed.
--- NOTE | 2019-03-22 10:14 | NUR ---
Received phone call from Dayanna Ortega [facility] [phone]. She reported that patient has not been seen at this clinic since 2007. Patient will need to call Asha at [facility] after discharge to go over insurance and needs. Dayanna reported that Dr. Gonsalves sees patient's once a week on and booking to see her is three weeks out at this time. This will be communicated to patient.
[2019-03-22 15:20] VITALS: BP 140/50; PULSE 99; TEMP 100
--- NOTE | 2019-03-22 17:39 | NUR ---
Patient had a chance to go down to the gift shop this afternoon when with OT and bought some gifts for some friends and family. Her has been by visiting this afternoon following therapies. Patient did attended all therapies today. She found out today that they could not afford the bed that they wanted to get. PT/OT/SW are looking at other options for her. Pain is currently managed with the scheduled pain meds. will continue to monitor.
--- NOTE | 2019-03-22 20:45 | NUR ---
Shift assessment complete. Patient dangling at bedside. Assisted with removal of boot. Patient c/o 05/18 pain in right ankle. Scheduled pain medication given. RUE PICC line flushed with NS, patent. Denies further needs at this time. Will continue to monitor.
--- NOTE | 2019-03-23 01:00 | NUR ---
Patient in bed, sleeping. Appears comfortable. Will continue to monitor.
[2019-03-23 04:09] VITALS: BP 136/64; PULSE 95; TEMP 97.7
--- NOTE | 2019-03-23 16:27 | NUR ---
JONNA spoke with Yeni from [facility] about ordered equipment. She reported that until [facility] approves the predetermination for the equipment, they will not be able to deliver those items to patient. JONNA also provided Lita, IPR director, with Yeni's phone number.
[2019-03-23 17:12] LABS: COLLECTION METHOD CATHETER
[2019-03-23 18:00] LABS: MUCOUS Present /lpf; PH 5 (5-8); SQUAMOUS EPITHELIAL None Seen /hpf; URINE APPEARANCE Clear; URINE BACTERIA Rare /hpf; URINE BILIRUBIN Negative (NEGATIVE); URINE BLOOD Negative (NEGATIVE); URINE COLOR Yellow; URINE GLUCOSE Negative (NEGATIVE); URINE KETONE Negative (NEGATIVE); URINE LEUKOCYTE ESTERASE Trace (NEGATIVE); URINE NITRATE Negative (NEGATIVE); URINE PROTEIN(semi-quant) Negative (NEGATIVE); URINE RBC 0-2 /hpf; URINE UROBILINOGEN Negative (NEGATIVE)
--- NOTE | 2019-03-23 18:00 | NUR ---
Patient currently resting in bed at this time, call light in reach and watching TV. Patient complaining of itching around jannette area and feeling like she had a UTI. Straight Cath was performed and UA/UC was sent to lab. Patient tolerated with minimal discomfort reported. Patient did use the female urinal one time today due to not having her cam boot on and needing to go right away. Staff had to place the urinal as well as empty it for patient. She attended all therapies today and tolerated diet well. She was weighed today with the following: wheelchair weight 27.9 kg Cam Boot weight 1.9 kg Eleni's weight 207.3 kg Will continue to monitor.
[2019-03-23 18:42] VITALS: BP 117/55; PULSE 100; TEMP 98
--- NOTE | 2019-03-23 21:30 | NUR ---
Patient rests in bed on side. Alert and oriented x 4. Pleasant. Watches TV. HS meds and insulin reviewed and given. Cam boot removed RLE and ice pack applied. Complaints of slighly internal vaginal itching and burning and reported to Amara JORDAN, new order received and reviewed with patient. States has a granola bar if takes a snack tonight.
[2019-03-24 03:29] VITALS: BP 147/84; PULSE 75; TEMP 97.9
--- NOTE | 2019-03-24 03:30 | NUR ---
Patient awake and female urinal placed. Dribbled some urine on pad and changed. Patient wipes self. Reviewed mycolog cream unavailable at this time and Montse marxwarehouse material handler left note for pharmacy.
--- NOTE | 2019-03-24 05:59 | NUR ---
AWAKENED FOR AM MEDS. DENIES FURTHER NEEDS.
--- NOTE | 2019-03-24 11:00 | NUR ---
Report from ZARA Centeno. Pt toileted with bariatric BSC, took pills whole with thin liquids, alert & O, pleasantly cooperative.
--- NOTE | 2019-03-24 15:00 | NUR ---
PICC intact right upper arm with sterile dressing change done with insertion site cleansed with chloraprep x 1, chlorhexidine impregnated disk applied, skin prep, stat lock, and tegaderm applied. no signs or symptoms of IV complications noted. no concerns voiced. to continue with cares.
--- NOTE | 2019-03-24 17:56 | NUR ---
visiting, pt in bed resting, ice to RLE, KPAD to left shoulder.
[2019-03-24 18:35] VITALS: BP 112/45; PULSE 100; TEMP 98.5
--- NOTE | 2019-03-24 21:00 | NUR ---
PT RESTING IN BARIATRIC BED. USES TRAPEZE PRN. ABLE TO MOVE AROUND IN BED. PRAFO BOOT TO RLE. UPPER ABD FOLD W/O REDNESS. REDNESS RESOLVED. LOWER ABD FOLD MOIST/ RED. AREA CLEANED AND DESENEX POWDER APPLIED. PT USES OINTMENT TO VAGINAL AREA FOR YEAST/ITCHING. PAIN CONTROLLED WITH SCHEDULE NARCOTIC. PT CHEERFUL ABOUR HER PROGRESS. RELATES HOME EQUIPMENT SHOULD BE DELIVERED TO HER HOUSE TOMORROW. CALL LIGHT I NREACH.
[2019-03-25 06:00] VITALS: BP 137/61; PULSE 91; TEMP 98.7
--- NOTE | 2019-03-25 06:15 | NUR ---
pt verbalized had a restful night.
--- NOTE | 2019-03-25 08:50 | NUR ---
Patient up in wheelchair. Transfers to bed with minimal assistance, using sliding board. Right foot in cam boot. States pain 6/10, given scheduled tylenol. Patient alert and oriented x3. Shift assessment complete. Denies further needs at this time.
--- NOTE | 2019-03-25 13:34 | NUR ---
Contacted Ortho, patient would like to know if there is another option instead of wearing CAM boot through out the night. Notified patient that there is no alternative to the CAM boot.
[2019-03-25 15:40] VITALS: BP 137/56; PULSE 100; TEMP 97.7
--- NOTE | 2019-03-25 18:10 | NUR ---
Patient in bed at this time, Denies pain or further needs at this time. Will report off to night court magistrate.
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
[2019-03-26 06:00] VITALS: BP 128/61; PULSE 88; TEMP 98.1
--- NOTE | 2019-03-26 11:54 | NUR ---
Report from ZARA Arroyo. Pt transferred to BSC this morning, to group therapy in wheelchair this morning. CAM boot to [facility].
[2019-03-26 17:15] VITALS: BP 136/44; PULSE 89; TEMP 98
--- NOTE | 2019-03-26 20:59 | NUR ---
No acute changes. Report to ZARA Arroyo
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
--- NOTE | 2019-03-27 03:00 | NUR ---
CALLED TO NURSES STATION NEEDING TO VOID. REQUESTING FEMALE URINAL DUE TO AMBIEN AND BEING UNSTEADY. VOIDED 350MLS WITHOUT DIFFICULTY. RATING PAIN 5/10-LEFT SHOULDER/BACK/ANKLE DESCRIBED CONSTANT ACHE. SCHEDULED PERCOCET GIVEN PER DR ORDER. DENIES ANY OTHER NEEDS AT THIS TIME. WILL MONITOR.
[2019-03-27 05:32] VITALS: BP 117/62; PULSE 98; TEMP 97.6
--- NOTE | 2019-03-27 13:13 | NUR ---
Pt's sister and her son visiting. Pt ate sitting bedside. CAM boot in place.
[2019-03-27 17:13] VITALS: BP 150/64; PULSE 91; TEMP 98.3
--- NOTE | 2019-03-27 20:24 | NUR ---
Pt verbalized this afternoon to REDDY Murray that she just now feels ready to go home on Thursday (whereas pt was reluctant to leave hospital and requesting things she could do for herself). More confidence with transfers to/from bed to BSC without difficulty or other equipment. Pt's family visited today, good spirits.
--- NOTE | 2019-03-27 22:00 | NUR ---
HS meds/insulin all reviewed and given. Up with observation to BSC and voids and rests self back in bed. Cam boot on. Denies further needs.
--- NOTE | 2019-03-28 01:15 | NUR ---
Urinal placed and emptied by nurse. Patient denies further needs.
--- NOTE | 2019-03-28 03:16 | NUR ---
awakened for meds. All reviewed and given. Denies needs.
[2019-03-28 03:30] VITALS: BP 125/52; PULSE 98; TEMP 98.1
--- NOTE | 2019-03-28 08:00 | NUR ---
Patient resting in bed at this time, call light in reach and pleasent mood this morning. Tolerating diet this morning. Patient did get ahold of Dr. Trimble's office to reschedule appointment and new date and time is April 07 @ 11:30 AM. Patient was able to do her transfer to the toilet independently with staff holding BSC in place to make sure it didn't slide away from bed. Continues to have pain to her low back and to right lower extremity and is given scheduled meds that are effective. Will continue to monitor.
--- NOTE | 2019-03-28 18:00 | NUR ---
This nurs has not heard anything more about the delivery of her equipment today or tomorrow. Will report off to night nurse.
[2019-03-28 18:44] VITALS: BP 137/55; PULSE 95; TEMP 97.4
--- NOTE | 2019-03-28 22:15 | NUR ---
Patient report received from ZARA Mcknight at this time. Patient resting in bed, HS medications given. Assisted patient to BSC and back to bed. No other needs reported.
[2019-03-29 04:51] VITALS: BP 141/61; PULSE 100; TEMP 97.8
--- NOTE | 2019-03-29 06:56 | NUR ---
Patient report given to ZARA Lopez. Patient is resting comfortably in bed, no needs reported.
--- NOTE | 2019-03-29 09:22 | NUR ---
Report from ZARA Ang. Pt reports concern r/t left upper pannus with more bruising, denies pain to palpation, states this area is larger than usual. Jey N/V.
--- NOTE | 2019-03-29 13:51 | NUR ---
[employer] will be able to deliver the pt's equipment to their home on 03/31. SW will continue to follow.
--- NOTE | 2019-03-29 14:09 | NUR ---
JONNA met with the patient about home health services. The pt reports Nelsy from [facility] contacted her last week about services. JONNA contacted Nelsy and left a vm to inform her of the discharge date change. The new discharge date is 03/31. JONNA will continue to follow.
[2019-03-29 16:47] VITALS: BP 148/60; PULSE 102; TEMP 97.8
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
--- NOTE | 2019-03-29 22:15 | NUR ---
Shift assessment complete. Patient in bed, awake. States, 6/10 pain in right ankle, and some generalized pain. Scheduled medications given. Denies further needs. Will continue to monitor.
[2019-03-30 04:16] VITALS: BP 153/68; PULSE 102; TEMP 97.6
--- NOTE | 2019-03-30 04:29 | NUR ---
Patient in bed, awake. Assisted with use of female urinal. Tolerated well. States, pain 5/10 in right ankle. Scheduled pain medication given. Denies ice pack. Denies further needs at this time. Will continue to monitor.
--- NOTE | 2019-03-30 14:38 | NUR ---
Patient currently working with PT at this time. Patient was educated on the regulating the kinds of foods to have in her house to prevent temptation. Eating at least 3 small healthy well balanced meals a day. Making sure to select foods with fiber with each meal to keep bowels regular. Encouraged to stay on daily calorie intake of 1800 calories per day or 60 carbs per meal per antonia Torres. Eating two daily snacks a day no more then 100 calories per snack. Discussed doing ACH[employer] accuchecks and keeping a log of them. Encouraging her to use her [employer] dov on her phone to track her progress. She will be going to via [employer] orientation April 26 @ 5:30 PM. She reported that she is planning on doing daily exercising as well.
--- NOTE | 2019-03-30 15:05 | NUR ---
Patient resting in bed following the removal of her PICC line, per Karen. Patient will be monitored for any bleeding. She was educated on PICC line removal and limitations following its removal. This nurse has evaluated the PICC Line removal sight and there is no bleeding observed. Will continue to monitor.
--- NOTE | 2019-03-30 15:06 | NUR ---
SW met with the pt to present and discuss the IPR team conference note. The pt did not have any questions or concerns at this time. SW will continue to follow.
[2019-03-30 18:00] VITALS: BP 147/83; PULSE 97; TEMP 98.5
--- NOTE | 2019-03-30 21:30 | NUR ---
PT HAD VISITOR. IN GOOD SPIRITS. VERBALIZES ANXIRTY ABOUT DISCHARGING TOMORROW. PT ABLE TO MOVE AROUND INDEPENDENTLY IN BARIATRIC BED. ABLE TO TRANSFER SELF TO .
[2019-03-31 05:25] VITALS: BP 135/53; PULSE 78; TEMP 98.1
[2019-03-31] MEDS ORDERED: CYMBALTA 30MG30 MG PO (07:25)
[2019-03-31] MEDS ORDERED: WELLBUTRIN 75MG75 MG PO (07:25)
[2019-03-31] MEDS ORDERED: MICATIN2% TP (07:26)
[2019-03-31] MEDS ORDERED: DESENEX21 TP (07:26)
[2019-03-31] MEDS ORDERED: PERCOCET 325 MG1 TA2 PO (07:29)
--- NOTE | 2019-03-31 10:03 | NUR ---
The pt to discharge home with [facility] today, 03/31. The pt's family will be picking up the pt after 1100. JONNA faxed discharge orders to Nelsy at [facility]. There are no additional needs at this time.
--- NOTE | 2019-03-31 15:04 | NUR ---
Patient Health Summary, Discharge Summary, and Home Meds printed and reviewed with patient. Stressed importance of follow up appointments. Reviewed medications, provided printed prescription for Oxycodone. Belongings gathered by SARTHAK/Gonzalo including glasses, wheelchair, wallet, silver ring on L ring finger, IPAD and cellphone and chargers. Patient transported by SARTHAK/Gonzalo and seatbleted for ride home with and mother. Patient denied any questions.
== END 2019-03-31 13:30 | disposition home health service (06) | DRG 560 ==
PROVIDERS: ADMIT Internal Medicine
DX: S92.001D Unspecified fracture of right calcaneus, subsequent encounter for fracture with routine healing (principal); Z68.44 Body mass index [BMI] 60.0-69.9, adult; F33.9 Major depressive disorder, recurrent, unspecified; W01.0XXD Fall on same level from slipping, tripping and stumbling without subsequent striking against object, subsequent encounter; E66.01 Morbid (severe) obesity due to excess calories; I10 Essential (primary) hypertension; E11.40 Type 2 diabetes mellitus with diabetic neuropathy, unspecified; K21.9 Gastro-esophageal reflux disease without esophagitis; D50.9 Iron deficiency anemia, unspecified; J45.909 Unspecified asthma, uncomplicated; E78.5 Hyperlipidemia, unspecified; G89.29 Other chronic pain; L29.8 Other pruritus; M54.89 Other dorsalgia; F41.1 Generalized anxiety disorder; R21 Rash and other nonspecific skin eruption; G72.9 Myopathy, unspecified; E03.9 Hypothyroidism, unspecified; G47.00 Insomnia, unspecified; Z88.9 Allergy status to unspecified drugs, medicaments and biological substances; Z88.1 Allergy status to other antibiotic agents; Z79.82 Long term (current) use of aspirin
CPT/HCPCS: 99222-AI; 99232-AI; 99239; G0463; J1650; J1815

== ENCOUNTER → 2019-10-27 | Outpatient (CLI) | payer BC ==
[~2019-10-27] MED LIST changes: +CYMBALTA 30MG30 MG PO; +DESENEX21 TP; +LOVENOX 6060 MG/0.6 SQ; +MICATIN2% TP; +TRIAMCINOLONE A15 GM TP; +WELLBUTRIN 75MG75 MG PO
== END ==
LOC: COL.RAD 10-12 09:45
DX: R22.31 Localized swelling, mass and lump, right upper limb (principal)